=== PATIENT | female | born 1985 | race Caucasian/White ===

== ENCOUNTER 2018-10-03 00:10 | Emergency (ER) | payer OTHER ==
[~2018-10-03] VITALS: Ht 170.2 cm; Wt 77.1 kg
[~2018-10-03 00:10] MED LIST: BACTRIM DS TAB1 EACH PO; BENADRYL25 MG PO; CEPHALEXIN500 MG PO; DOXYCYCLINE HY100 MG PO; KEFLEX500 MG PO; PREDNISONE20 MG PO
[2018-10-03] MEDS ORDERED: DOXYCYCLINE HY100 MG PO (01:45)
== END 2018-10-03 02:09 | disposition home or self-care (01) ==
LOC: ED 00:10
DX: L03.114 Cellulitis of left upper limb (principal); F19.90 Other psychoactive substance use, unspecified, uncomplicated; F17.200 Nicotine dependence, unspecified, uncomplicated; Z88.2 Allergy status to sulfonamides; Z88.1 Allergy status to other antibiotic agents
CPT/HCPCS: 76882; 87070; 87077; 87186; 90471; 90715; 96372; 99284-25; J0696

== ENCOUNTER 2025-07-09 17:33 | Emergency (ER) | payer OTHER ==
[~2025-07-09] VITALS: Ht 170.2 cm; Wt 90.6 kg
[~2025-07-09 17:33] MED LIST changes: +METRONIDAZOLE500 MG PO
[2025-07-09] MEDS ORDERED: CLARITIN10 MG PO (18:23)
[2025-07-09] MEDS ORDERED: DOXYCYCLINE HYCLATE 100 MG HOME.PACK PO ONE (20:00)
[2025-07-09] MEDS ORDERED: methylPREDNISolone 4 MG HOME.PACK PO ONE (20:00)
[2025-07-09 20:18] VITALS: BP 129/85
== END 2025-07-09 20:18 | disposition home or self-care (01) ==
LOC: ED 17:33
DX: L23.7 Allergic contact dermatitis due to plants, except food (principal); F17.200 Nicotine dependence, unspecified, uncomplicated; Z88.2 Allergy status to sulfonamides; Z88.1 Allergy status to other antibiotic agents
CPT/HCPCS: 99282; A9270